=== PATIENT | female | born 1945 | race Two or more races ===

== ENCOUNTER 2017-09-22 13:53 | Outpatient (CLI) | payer OTHER ==
[~2017-09-22 13:53] MED LIST: NAPROXEN500 M1; PEPCID40 MG PO; SIMVASTATIN5 MG; SULFAMETHOXAZOL1 TA6; VASOTEC10 MG; ZOFRAN8 MG PO
== END 2017-09-22 13:56 | disposition home or self-care (01) ==
LOC: RAD 501 13:53
DX: M79.605 Pain in left leg (principal)

== ENCOUNTER → 2017-10-09 | Emergency (ER) | payer OTHER ==
[~2017-10-09] VITALS: Ht 157.5 cm; Wt 59.9 kg
[~2017-10-09] MED LIST changes: +KETO10TA2 PO; +NEURONTIN300 MG PO; +ZANTAC25 MG/1 ML
== END | disposition home or self-care (01) ==
LOC: ER 00:52
DX: M25.572 Pain in left ankle and joints of left foot (principal)

== ENCOUNTER 2017-10-31 09:57 | Outpatient (CLI) | payer OTHER | END 2017-10-31 10:07 | disposition home or self-care (01) | LOC: NUCLEAR 09:57 | DX: M81.0 Age-related osteoporosis without current pathological fracture (principal); M85.9 Disorder of bone density and structure, unspecified ==

== ENCOUNTER 2017-11-21 09:51 | Outpatient (CLI) | payer OTHER | END 2017-11-21 09:58 | disposition home or self-care (01) | LOC: LAB 09:51 | DX: E55.9 Vitamin D deficiency, unspecified (principal); M85.88 Other specified disorders of bone density and structure, other site; E88.89 Other specified metabolic disorders; M81.8 Other osteoporosis without current pathological fracture; E83.42 Hypomagnesemia; E56.1 Deficiency of vitamin K; E21.2 Other hyperparathyroidism ==

== ENCOUNTER 2018-05-04 10:10 | Outpatient (CLI) | payer OTHER | END 2018-05-04 10:18 | disposition home or self-care (01) | LOC: RAD 501 10:10 | DX: M17.11 Unilateral primary osteoarthritis, right knee (principal); M54.5 Low back pain ==

== ENCOUNTER → 2019-01-21 | Emergency (ER) | payer OTHER ==
[~2019-01-21] VITALS: Ht 152.4 cm; Wt 61.2 kg
== END | disposition left against medical advice (07) ==
LOC: ER 04:57
DX: Z53.20 Procedure and treatment not carried out because of patient's decision for unspecified reasons (principal)

== ENCOUNTER → 2019-03-20 | Outpatient (CLI) | payer OTHER | END | disposition home or self-care (01) | LOC: NUCLEAR 08:00 | DX: I70.218 Atherosclerosis of native arteries of extremities with intermittent claudication, other extremity (principal); I70.211 Atherosclerosis of native arteries of extremities with intermittent claudication, right leg; I70.212 Atherosclerosis of native arteries of extremities with intermittent claudication, left leg ==

== ENCOUNTER 2019-08-09 12:27 | Outpatient (CLI) | payer OTHER | END 2019-08-09 12:35 | disposition home or self-care (01) | LOC: NUCLEAR 12:27 | DX: M81.0 Age-related osteoporosis without current pathological fracture (principal) ==